=== PATIENT | male | born 1980 | race Caucasian/White ===

== ENCOUNTER 2018-01-30 17:21 | Emergency (ER) | payer OTHER ==
[2018-01-30 17:41] VITALS: BP 125/88
--- NOTE | 2018-01-30 18:53 | UC ---
Skin Complaint HPI - HPI Summary HPI Summary: 37 yo obese WM on disability, sedentray on chronic pain meds p/w RLE swelling associated with redness of right lateral foot c 2 days. NOT hot to touch, denies f/c, injury - History of Current Complaint Chief Complaint: UCSkin Time Seen by Provider: 01/30/18 17:56 Stated Complaint: INFECTION IN ANKLE Hx Obtained From: Patient Onset/Duration: Gradual Onset Skin Exposure Onset/Duration: Days Ago Onset Severity: Moderate Current Severity: Moderate Pain Intensity: 6 - Allergy/Home Medications Allergies/Adverse Reactions: Allergies Allergy/AdvReac Type Severity Reaction Status Date / Time No Known Allergies Allergy Verified 01/30/18 17:41 Home Medications: Home Medications Amitriptyline TAB* [Elavil TAB*] 25 mg PO BEDTIME 01/30/18 [History Confirmed ] Cyclobenzaprine TAB* [Flexeril 10 MG TAB*] 10 mg PO DAILY 01/30/18 [History Confirmed 01/30/18] Tizanidine HCl 4 mg PO 01/30/18 [History] oxyCODONE SR TAB(*) [Oxycontin 10 mg (*)] 30 mg PO BID 01/30/18 [History Confirmed 01/30/18] oxyCODONE TAB* [Roxycodone TAB 5 mg*] 10 mg PO Q4H PRN 01/30/18 [History Confirmed 01/30/18] Review of Systems Constitutional: Negative Skin: Other - RLE swelling Eyes: Negative ENT: Negative Respiratory: Negative Cardiovascular: Negative Gastrointestinal: Negative Genitourinary: Negative Motor: Negative Neurovascular: Negative Musculoskeletal: Edema - right foot Neurological: Negative Psychological: Negative All Other Systems Reviewed And Are Negative: Yes PMH/Surg Hx/FS Hx/Imm Hx - Additional Past Medical History Additional PMH: chronic pain secondary to multiple injures and surgeries to right knee, LBP Previously Healthy: No - Surgical History Surgical History: Yes Surgery Procedure, Year, and Place: warts removed as child - Social History Alcohol Use: None Substance Use Type: Marijuana Substance Use Comment - Amount & Last Used: daily Smoking Status (MU): Heavy Every Day Tobacco Smoker Type: Cigarettes Physical Exam Triage Information Reviewed: Yes Appearance: Well-Appearing, No Pain Distress Vital Signs: Initial Vital Signs Temp 36.3 C 01/30/18 17:32 Pulse 88 01/30/18 17:32 Resp 18 01/30/18 17:32 BP 125/88 01/30/18 17:32 Pulse Ox 99 01/30/18 17:32 Eye Exam: Normal ENT Exam: Normal ENT: Positive: Normal ENT inspection Neck exam: Normal Respiratory Exam: Normal Cardiovascular Exam: Normal Musculoskeletal: Positive: Strength Intact, ROM Intact, Edema @ - right ankle, foot, mild TTP in right calf, neg Homann sign, Cap refill >2 sec, around 4sec Skin Exam: Other - mild swelling right foot,ankle and calf with erythema W/O Calor Course/Dx - Course Course Of Treatment: LOW suspicion for cellulitis or DVT but advised to r/o DVT via LE Doppler tomorrow as the tech left for the day. Appears to be more of a venous insufficiency as pt is obese and sedentary. RICE, keep RLE elevated with KAYLI wrap - Diagnoses Provider Diagnoses: RLE swelling. venous insufficiency Discharge - Sign-Out/Discharge Documenting (check all that apply): Discharge/Admit/Transfer - Discharge Plan Condition: Stable Disposition: HOME Patient Education Materials: Swollen Joint (ED) Referrals: Jd Alvarado MD [Primary Care Provider] - Additional Instructions: Keep elevated, and with KAYLI wrap while ambulating, Return to clinic tomorrow for ultrasound of right leg - Billing Disposition and Condition Condition: STABLE Disposition: HOME
== END 2018-01-30 18:52 | disposition home or self-care (01) ==
LOC: UCEAST 17:21
DX: R60.0 Localized edema (principal); I87.2 Venous insufficiency (chronic) (peripheral); E66.9 Obesity, unspecified; F17.210 Nicotine dependence, cigarettes, uncomplicated
CPT/HCPCS: 99212; G0463